=== PATIENT | male | born 1960 | race African-American/Black ===

== ENCOUNTER 2021-11-26 07:38 | Inpatient (IN) ==
[2021-11-26] MEDS ORDERED: Ropivacaine/PF 0.5% 30 ML VIAL ONE (07:52)
[2021-11-26] MEDS ORDERED: ROPIVACAINE/PF/NS 0.25% 1 EACH SYRINGE INTRAART ONE (07:52)
[2021-11-26] MEDS ORDERED: Ondansetron 4 MG/2 ML VIAL IVP PRN ×2 (08:19→15:08)
[2021-11-26] MEDS ORDERED: *HR* FentaNYL (PF) 100 MCG/2 ML VIAL IVP PRN ×2 (08:19→14:14)
[2021-11-26] MEDS ORDERED: CeFAZolin Syr 2,000MG/20 ML 2,000 MG/20 ML SYRINGE IVPB ONE (08:19)
[2021-11-26] MEDS ORDERED: *HR* OxyCODONE Immed Rel 5 MG TABLET PO PRN (08:19)
[2021-11-26] MEDS ORDERED: *HR* Midazolam HCl 2 MG/2 ML VIAL ONE (08:29)
[2021-11-26] MEDS ORDERED: *HR* FentaNYL (PF) 100 MCG/2 ML VIAL ONE (08:29)
[2021-11-26] MEDS ORDERED: Ringers Solution, Lactated 1,000 ML IVC SCH ×2 (08:30→15:03)
[2021-11-26] MEDS ORDERED: Ondansetron 4 MG/2 ML VIAL ONE (08:30)
[2021-11-26] MEDS ORDERED: 0.9 % Sodium Chloride 1,000 ML IVC SCH (08:30)
[2021-11-26] MEDS ORDERED: Lidocaine -MPF 2% 2 ML VIAL ONE (08:30)
[2021-11-26] MEDS ORDERED: *HR* Propofol 200 MG/20 ML VIAL IVP ONE (08:30)
[2021-11-26] MEDS ORDERED: Gentamicin 430 MG in 0.9 % Sodium Chloride 100 ML IVPB ONE (08:30)
[2021-11-26] MEDS ORDERED: Vancomycin 1,000 MG VIAL ONE (09:50)
[2021-11-26] MEDS ORDERED: Ethanol\\Acetic Acid\\Na Ace\\Ben 1,000 ML IRRIG.SOLN IR ONE (09:50)
[2021-11-26] MEDS ORDERED: Povidone-Iodine 45 ML, Sodium Chloride IRRigation 1,000 ML IR ONE (10:05)
[2021-11-26] MEDS ORDERED: TOTAL JOINT MIXTURE (100ML) INTRAART ONE (10:05)
[2021-11-26] MEDS ORDERED: HYDROGEN PEROXIDE ONE (10:06)
[2021-11-26] MEDS ORDERED: SODIUM CHLORIDE IRRIGATION IR ONE (11:00)
[2021-11-26] MEDS ORDERED: METHYLENE BLUE IR ONE (11:00)
[2021-11-26] MEDS ORDERED: Tranexamic Acid 1,000 MG/10 ML VIAL ONE (11:04)
[2021-11-26] MEDS ORDERED: *HR* HYDROMORPHONE 2 MG/ML VIAL ONE (11:26)
[2021-11-26] MEDS: *HR* HYDROmorphone PF 0.5 MG/0.5 ML SYRINGE IVP PRN ×2 (13:53→13:59)
[2021-11-26] MEDS ORDERED: Acetaminophen IV 1,000 MG/100 ML BAG IVPB ONE (14:15)
[2021-11-26] MEDS ORDERED: tiZANidine 4 MG TABLET PO ONE (14:16)
[2021-11-26] MEDS ORDERED: Naloxone 0.4 MG/ML INJ IVP PRN (15:03)
[2021-11-26] MEDS ORDERED: *HR* Promethazine 25 MG/ML VIAL IM PRN (15:03)
[2021-11-26] MEDS ORDERED: Sennosides 8.6 MG TABLET PO PRN (15:03)
[2021-11-26] MEDS ORDERED: MOM Conc 10 ML UD.LIQ PO PRN (15:03)
[2021-11-26 17:03] LABS: Basophils % 0.4 %; Hematocrit 37.2 % (37.5-50.1); Hemoglobin 12.4 g/dL (12.9-16.9); Immature Granulocytes % 0.4 % (0-4); Lymphocytes # 0.6 K/mcL (0.6-4.6); Lymphocytes % 7.3 %; Mean Corpuscular HGB Conc 33.3 g/dL (31.6-35.5); Mean Corpuscular Hemoglobin 27.1 pg (28.0-33.3); Mean Corpuscular Volume 81.2 fL (83.0-100.0); Mean Platelet Volume 8.8 fL (9.4-12.4); Monocytes % 0.2 %; Neutrophils # 7.7 K/mcL (1.6-8.9); Platelet Count 238 K/mcL (140-400); Red Blood Count 4.58 M/mcL (4.19-5.50); Red Cell Distribution Width 15.3 % (11.5-14.5); Segmented Neutrophils % 91.7 %; White Blood Count 8.4 K/mcL (4.3-11.1)
[2021-11-26 17:14] LABS: Albumin 3.9 g/dL (3.5-5.7); Albumin/Globulin Ratio 1.3 (1.1-2.2); Calcium 7.6 mg/dL (8.6-10.3); Potassium 4.2 mEq/L (3.5-5.1); Total Protein 6.9 g/dL (6.4-8.9)
[2021-11-26] MEDS: Ascorbic Acid 500 MG TABLET PO SCH (18:13)
[2021-11-26] MEDS: CeFAZolin 2 GM/120 ML BAG IVPB SCH (18:23)
[2021-11-26] MEDS: *HR* OxyCODONE Immed Rel 5 MG TABLET PO PRN ×2 (18:29→22:32)
[2021-11-26] MEDS: DAPTOmycin 500 MG in 0.9 % Sodium Chloride 100 ML IVPB SCH (19:22)
[2021-11-26] MEDS: Acetaminophen IV 1,000 MG/100 ML BAG IVPB SCH (23:10)
[2021-11-27] MEDS: CeFAZolin 2 GM/120 ML BAG IVPB SCH ×3 (01:34→18:36)
[2021-11-27] MEDS: *HR* OxyCODONE Immed Rel 5 MG TABLET PO PRN ×4 (02:19→17:45)
[2021-11-27] MEDS: Acetaminophen IV 1,000 MG/100 ML BAG IVPB SCH ×4 (05:04→23:45)
[2021-11-27 05:14] LABS: Basophils % 0.1 %; Hematocrit 32.3 % (37.5-50.1); Hemoglobin 10.9 g/dL (12.9-16.9); Immature Granulocytes % 0.4 % (0-4); Lymphocytes # 1.7 K/mcL (0.6-4.6); Lymphocytes % 17.3 %; Mean Corpuscular HGB Conc 33.7 g/dL (31.6-35.5); Mean Corpuscular Hemoglobin 27.2 pg (28.0-33.3); Mean Corpuscular Volume 80.5 fL (83.0-100.0); Mean Platelet Volume 9.7 fL (9.4-12.4); Monocytes # 0.3 K/mcL (0.0-1.3); Monocytes % 2.8 %; Neutrophils # 7.9 K/mcL (1.6-8.9); Platelet Count 240 K/mcL (140-400); Red Blood Count 4.01 M/mcL (4.19-5.50); Red Cell Distribution Width 15.2 % (11.5-14.5); Segmented Neutrophils % 79.4 %
[2021-11-27 05:33] LABS: Calcium 7.2 mg/dL (8.6-10.3); Potassium 4.1 mEq/L (3.5-5.1)
[2021-11-27 05:35] LABS: INR 1.3; Prothrombin Time 14.5 Seconds (9.4-12.1)
[2021-11-27] MEDS: Loratadine 10 MG TABLET PO SCH (07:18)
[2021-11-27] MEDS: Ascorbic Acid 500 MG TABLET PO SCH ×2 (07:18→17:15)
[2021-11-27] MEDS: DilTIAZem CD (24hr) 120 MG CAP.ER.24H PO SCH (07:18)
[2021-11-27] MEDS: Multivit/Ca/Min/Fe/FA 1 TAB TABLET PO SCH (07:19)
[2021-11-27] MEDS: Magnesium Oxide 400 MG TABLET PO SCH (07:19)
[2021-11-27] MEDS: Valsartan 160 MG TABLET PO SCH (07:19)
[2021-11-27] MEDS: calcitrioL 0.25 MCG CAPSULE PO SCH (07:19)
[2021-11-27] MEDS ORDERED: DilTIAZem CD (24hr) 120 MG CAP.ER.24H PO SCH (09:00)
[2021-11-27] MEDS: *HR* HYDROmorphone 2 MG/ML SYRINGE IVP PRN ×3 (09:28→20:57)
[2021-11-27] MEDS: 0.9 % Sodium Chloride 1,000 ML IVC SCH (11:47)
[2021-11-27] MEDS ORDERED: Aspirin Enteric Coated 81 MG Tablet PO ONE (17:31)
[2021-11-27] MEDS ORDERED: *HR* Warfarin 7.5 MG TABLET PO ONE (18:00)
[2021-11-27] MEDS ORDERED: Warfarin perPT PO PRN (18:00)
[2021-11-27] MEDS: DAPTOmycin 500 MG in 0.9 % Sodium Chloride 100 ML IVPB SCH (18:24)
[2021-11-27] MEDS: mycophenolate mofetiL 250 MG CAPSULE PO SCH (19:15)
[2021-11-28] MEDS: *HR* OxyCODONE Immed Rel 5 MG TABLET PO PRN ×5 (00:43→22:02)
[2021-11-28] MEDS: 0.9 % Sodium Chloride 1,000 ML IVC SCH (01:43)
[2021-11-28] MEDS: CeFAZolin 2 GM/120 ML BAG IVPB SCH ×3 (01:44→17:51)
[2021-11-28] MEDS: Acetaminophen IV 1,000 MG/100 ML BAG IVPB SCH ×4 (04:44→23:24)
[2021-11-28 06:27] LABS: Basophils % 0.4 %; Eosinophils # 0.1 K/mcL (0.0-0.6); Eosinophils % 0.8 %; Hematocrit 30.4 % (37.5-50.1); Hemoglobin 10.1 g/dL (12.9-16.9); Immature Granulocytes % 0.3 % (0-4); Lymphocytes # 2.6 K/mcL (0.6-4.6); Lymphocytes % 27.5 %; Mean Corpuscular HGB Conc 33.2 g/dL (31.6-35.5); Mean Corpuscular Hemoglobin 27.1 pg (28.0-33.3); Mean Corpuscular Volume 81.5 fL (83.0-100.0); Mean Platelet Volume 9.5 fL (9.4-12.4); Monocytes # 0.5 K/mcL (0.0-1.3); Monocytes % 4.7 %; Neutrophils # 6.3 K/mcL (1.6-8.9); Platelet Count 217 K/mcL (140-400); Red Blood Count 3.73 M/mcL (4.19-5.50); Red Cell Distribution Width 15.7 % (11.5-14.5); Segmented Neutrophils % 66.3 %; White Blood Count 9.6 K/mcL (4.3-11.1)
[2021-11-28 06:35] LABS: INR 1.3; Prothrombin Time 14.2 Seconds (9.4-12.1)
[2021-11-28 06:42] LABS: Calcium 6.8 mg/dL (8.6-10.3); Potassium 3.7 mEq/L (3.5-5.1)
[2021-11-28] MEDS: DilTIAZem CD (24hr) 120 MG CAP.ER.24H PO SCH (07:07)
[2021-11-28] MEDS: Ascorbic Acid 500 MG TABLET PO SCH ×2 (07:07→17:51)
[2021-11-28] MEDS: Multivit/Ca/Min/Fe/FA 1 TAB TABLET PO SCH (07:08)
[2021-11-28] MEDS: Magnesium Oxide 400 MG TABLET PO SCH (07:08)
[2021-11-28] MEDS: mycophenolate mofetiL 250 MG CAPSULE PO SCH ×2 (07:08→21:30)
[2021-11-28] MEDS: TACROLIMUS 4 MG PO SCH (07:08)
[2021-11-28] MEDS: Valsartan 160 MG TABLET PO SCH (07:08)
[2021-11-28] MEDS: calcitrioL 0.25 MCG CAPSULE PO SCH (07:08)
[2021-11-28] MEDS: Tacrolimus [Envarsus Xr] 1 MG Tab.Er.24h PO SCH (07:08)
[2021-11-28] MEDS: Loratadine 10 MG TABLET PO SCH (07:08)
[2021-11-28] MEDS: VALGANCICLOVIR HCL 450 MG PO SCH (07:08)
[2021-11-28] MEDS ORDERED: Calcium Gluconate 1gm/50mL 1 GM/50 ML BAG IVPB ONE (08:33)
[2021-11-28] MEDS: Sennosides/Docusate Sodium TABLET PO SCH ×2 (10:20→21:30)
[2021-11-28] MEDS: Sulfamethoxazole/Trimeth SS 1 TAB PO SCH (17:51)
[2021-11-28] MEDS ORDERED: *HR* Warfarin 7.5 MG TABLET PO ONE (18:00)
[2021-11-28] MEDS: DAPTOmycin 500 MG in 0.9 % Sodium Chloride 100 ML IVPB SCH (18:39)
[2021-11-29] MEDS: CeFAZolin 2 GM/120 ML BAG IVPB SCH ×2 (01:23→09:32)
[2021-11-29] MEDS: Acetaminophen IV 1,000 MG/100 ML BAG IVPB SCH ×3 (05:25→16:42)
[2021-11-29 05:42] LABS: Hematocrit 31.6 % (37.5-50.1); Hemoglobin 10.4 g/dL (12.9-16.9); Mean Corpuscular HGB Conc 32.9 g/dL (31.6-35.5); Mean Corpuscular Hemoglobin 27.1 pg (28.0-33.3); Mean Corpuscular Volume 82.3 fL (83.0-100.0); Mean Platelet Volume 9.4 fL (9.4-12.4); Platelet Count 240 K/mcL (140-400); Red Blood Count 3.84 M/mcL (4.19-5.50); Red Cell Distribution Width 15.6 % (11.5-14.5)
[2021-11-29 05:50] LABS: INR 1.3
[2021-11-29 05:59] LABS: Calcium 7.4 mg/dL (8.6-10.3); Magnesium 1.4 mg/dL (1.6-2.6)
[2021-11-29] MEDS: Sennosides/Docusate Sodium TABLET PO SCH ×2 (08:17→21:03)
[2021-11-29] MEDS: *HR* OxyCODONE Immed Rel 5 MG TABLET PO PRN ×4 (08:17→21:03)
[2021-11-29] MEDS: Ascorbic Acid 500 MG TABLET PO SCH ×2 (08:17→16:38)
[2021-11-29] MEDS: Valsartan 160 MG TABLET PO SCH (08:19)
[2021-11-29] MEDS: DilTIAZem CD (24hr) 120 MG CAP.ER.24H PO SCH (08:19)
[2021-11-29] MEDS: Loratadine 10 MG TABLET PO SCH (08:19)
[2021-11-29] MEDS: VALGANCICLOVIR HCL 450 MG PO SCH (08:20)
[2021-11-29] MEDS: TACROLIMUS 4 MG PO SCH (08:20)
[2021-11-29] MEDS: mycophenolate mofetiL 250 MG CAPSULE PO SCH ×2 (08:20→21:04)
[2021-11-29] MEDS: Magnesium Oxide 400 MG TABLET PO SCH (08:20)
[2021-11-29] MEDS: Tacrolimus [Envarsus Xr] 1 MG Tab.Er.24h PO SCH (08:20)
[2021-11-29] MEDS: calcitrioL 0.25 MCG CAPSULE PO SCH (08:20)
[2021-11-29] MEDS: Multivit/Ca/Min/Fe/FA 1 TAB TABLET PO SCH (08:21)
[2021-11-29] MEDS: polyethylene glycoL 3350 17 GM POWD.PACK PO SCH (12:40)
[2021-11-29] MEDS ORDERED: *HR* Warfarin 7.5 MG TABLET PO ONE (18:00)
[2021-11-29] MEDS: DAPTOmycin 500 MG in 0.9 % Sodium Chloride 100 ML IVPB SCH (18:14)
[2021-11-30] MEDS: Acetaminophen IV 1,000 MG/100 ML BAG IVPB SCH ×3 (00:17→11:27)
[2021-11-30] MEDS: *HR* OxyCODONE Immed Rel 5 MG TABLET PO PRN ×3 (06:28→18:03)
[2021-11-30] MEDS: polyethylene glycoL 3350 17 GM POWD.PACK PO SCH (09:51)
[2021-11-30] MEDS: Ascorbic Acid 500 MG TABLET PO SCH ×2 (09:52→17:35)
[2021-11-30] MEDS: Sennosides/Docusate Sodium TABLET PO SCH (09:52)
[2021-11-30] MEDS: mycophenolate mofetiL 250 MG CAPSULE PO SCH (09:53)
[2021-11-30] MEDS: Magnesium Oxide 400 MG TABLET PO SCH (09:53)
[2021-11-30] MEDS: Valsartan 160 MG TABLET PO SCH (09:53)
[2021-11-30] MEDS: Loratadine 10 MG TABLET PO SCH (09:53)
[2021-11-30] MEDS: TACROLIMUS 4 MG PO SCH (09:53)
[2021-11-30] MEDS: DilTIAZem CD (24hr) 120 MG CAP.ER.24H PO SCH (09:53)
[2021-11-30] MEDS: Tacrolimus [Envarsus Xr] 1 MG Tab.Er.24h PO SCH (09:53)
[2021-11-30] MEDS: Multivit/Ca/Min/Fe/FA 1 TAB TABLET PO SCH (09:54)
[2021-11-30] MEDS: VALGANCICLOVIR HCL 450 MG PO SCH (09:54)
[2021-11-30] MEDS: calcitrioL 0.25 MCG CAPSULE PO SCH (09:54)
[2021-11-30 09:58] VITALS: BP 137/83; PULSE 76; TEMP 98.2; O2SAT 99
[2021-11-30] MEDS ORDERED: Mag Hydrox/Al Hydrox/Simeth 30 ML UDC PO PRN (10:16)
[2021-11-30 10:47] LABS: Hematocrit 32.9 % (37.5-50.1); Hemoglobin 10.9 g/dL (12.9-16.9); Mean Corpuscular HGB Conc 33.1 g/dL (31.6-35.5); Mean Corpuscular Hemoglobin 27.8 pg (28.0-33.3); Mean Corpuscular Volume 83.9 fL (83.0-100.0); Mean Platelet Volume 9.4 fL (9.4-12.4); Platelet Count 224 K/mcL (140-400); Red Blood Count 3.92 M/mcL (4.19-5.50); Red Cell Distribution Width 15.5 % (11.5-14.5); White Blood Count 8.7 K/mcL (4.3-11.1)
[2021-11-30 11:05] LABS: Calcium 7.8 mg/dL (8.6-10.3); Potassium 3.4 mEq/L (3.5-5.1)
[2021-11-30] MEDS ORDERED: Pfizer COVID-19 VAC,BIVALENT,MRNA 30 MCG/0.3 ML VIAL IM ONE (15:45)
[2021-11-30] MEDS ORDERED: Flu Vac QV 22-23 (6MOS UP)/PF 0.5 ML SYRINGE IM ONE (15:46)
[2021-11-30 17:28] LABS: INR 1.3; Prothrombin Time 14.1 Seconds (9.4-12.1)
[2021-11-30] MEDS ORDERED: *HR* Warfarin 7.5 MG TABLET PO ONE (18:00)
[2021-11-30] MEDS: Sulfamethoxazole/Trimeth SS 1 TAB PO SCH (18:03)
== END 2021-11-30 18:14 | disposition home health service (06) | DRG 486 ==
LOC: SUATTDRO → SDCAOSI 07:38 → 4WAOSI 07:39
PROVIDERS: ADMIT Student in an Organized Health Care Education/Training Program; ATTEND Student in an Organized Health Care Education/Training Program